=== PATIENT | female | born 2000 | race Caucasian/White ===

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

== ENCOUNTER 2023-08-01 07:04 | Day surgery (SDC) | payer OTHER ==
[~2023-08-01] VITALS: Ht 165.1 cm; Wt 137.4 kg
[~2023-08-01 07:04] MED LIST changes: +LR 1,000 ML IV SCH; +Ondansetron 4 MG/2 ML VIAL IV PRN; +ZYRTEC 10MG10 MG PO
[2023-08-01] MEDS ORDERED: ZOLOFT 25MG25 MG PO (07:25)
[2023-08-01] MEDS ORDERED: GLUCOPHAGE XR500 M1 PO (07:25)
[2023-08-01] MEDS ORDERED: LIPITOR 10MG10 MG PO (07:25)
[2023-08-01] MEDS ORDERED: ADIPEX-P37.5 M2 PO (07:26)
[2023-08-01] MEDS ORDERED: ALLEGRA 180MG180 MG PO (07:26)
[2023-08-01] MEDS ORDERED: PROAIR HFA0.09 MG/AC (07:27)
[2023-08-01 08:28] VITALS: BP 120/80; PULSE 91; TEMP 97.7
--- NOTE | 2023-08-01 08:32 | NUR ---
0712 Patient ambulatory to bay 6 with a steady gait, breathing even and unlabored. Patient is alert and oriented. Consents reviewed and signed by patient. IV established. LR infusing via gravity at KVO. Call light in reach. Warm blanket offered and declined.
[2023-08-01] MEDS ORDERED: Lidocaine PF 2% (20 MG/ML) 5 ML VIAL ONE (08:34)
[2023-08-01 09:05] VITALS: BP 144/98; PULSE 90; TEMP 97.5
[2023-08-01 09:20] VITALS: BP 144/89; PULSE 92
[2023-08-01 09:35] VITALS: BP 145/90; PULSE 92
--- NOTE | 2023-08-01 09:45 | NUR ---
0905 RETURNS TO ROOM 6 PER CART. AWAKE, ALERT. RESP UNLABORED. AMBULATES TO RECLINER WITH STANDBY ASSIST. DENIES NAUSEA, ABD/CHEST PAIN OR DYSPHAGIA. VITAL SIGNS OBTAINED. CALL LIGHT AT SIDE. 0920 TOLERATES PO JUICE AND ICE CREAM WITHOUT NAUSEA. SWALLOWS WITHOUT DIFFICULTY 09 DISCHARGE INSTRUCTIONS REVIEWED. PATIENT VERBALIZES UNDERSTANDING. COPY PROVIDED IN DISCHARGE FOLDER. [address]76 DR. THACKER HERE TO VISIT WITH PATIENT [id number] DRESSES SELF
== END 2023-08-01 09:45 | disposition home or self-care (01) ==
LOC: SDCO 07:04
DX: Z13.810 Encounter for screening for upper gastrointestinal disorder (principal); G47.33 Obstructive sleep apnea (adult) (pediatric)
CPT/HCPCS: J2704; J7120